=== PATIENT | male | born 1945 | race Caucasian/White ===

== ENCOUNTER → 2017-09-17 | Day surgery (SDC) | payer OTHER ==
[~2017-09-17] MED LIST: FENTANYL CITRATE INJ/PF 100 MCG/2 ML AMPUL ONE; LIDOCAINE 1% INJ-PF (10 MG/ML) 30 ML SDV ONE; MIDAZOLAM 2 MG/2 ML INJ ONE
[2017-09-17 09:20] VITALS: BP 138/86
[2017-09-17 10:05] LABS: HEMATOCRIT 45.8 % (37.9-51.0); HEMOGLOBIN 15.9 g/dL (13.5-17.0); INTERNATIONAL RATION (INR) 1.01; MEAN CORPUSCULAR HEMOGLOBIN 32.9 pg (27.0-33.4); MEAN CORPUSCULAR HGB CONC 34.6 g/dL (32.0-36.0); MEAN CORPUSCULAR VOLUME 95 fl (80-97); PLATELET COUNT 176 10^3/uL (150-450); PROTHROMBIN TIME 13.9 SEC (11.4-15.4); RED BLOOD COUNT 4.81 10^6/uL (4.35-5.55); WHITE BLOOD COUNT 7.2 10^3/uL (4.0-10.5)
[2017-09-17 10:06] LABS: PARTIAL THROMBOPLASTIN TIME 30.4 SEC (23.5-35.8)
[2017-09-17 10:23] LABS: BLOOD UREA NITROGEN 12 mg/dL (7-20)
--- NOTE | 2017-09-17 12:42 | RADIOLOGY REPORT (SQ) ---
EXAM DESCRIPTION: CT CHEST WITHOUT COMPLETED DATE/TIME: 09/17/2017 11:30 am REASON FOR STUDY: NONSPECIFIC ABNORMAL FINDING OF LUNG FIELD R91.8 OTHER NONSPECIFIC ABNORMAL FINDI NG OF LUNG FIELD COMPARISON: Outside CT chest TECHNIQUE: CT scan performed of the chest without intravenous contrast. Images reviewed with lung, soft tissue and bone windows. Reconstructed coronal and sagittal MPR images reviewed. All images st ored on PACS. All CT scanners at this facility use dose modulation, iterative reconstruction, and/or weight based d osing when appropriate to reduce radiation dose to as low as reasonably achievable (ALARA). [facility]: Dose Right [facility]: CareDose [facility]: Dose Right [facility]: Teradose 4D [facility]: MakeLeaps RADIATION DOSE: CT Rad equipment meets quality standard of care and radiation dose reduction techniq ues were employed. CTDIvol: 16.7 - 20.2 mGy. DLP: 873 mGy-cm. mGy. LIMITATIONS: No technical limitations. FINDINGS: Patient was referred for biopsy of a left lower lobe pulmonary nodule almost 2 cm in size. Patient was scanned in the prone position and right decubitus orientations. We were unable to create a pathway for percutaneous biopsy between the left lower ribs. No biopsy was performed today. IMPRESSION: Left lower lobe lung biopsy canceled today. Lesion is deep to the posterior left lower ribs, unable to find a clear percutaneous approach for biopsy. Consider PET-CT for followup. TECHNICAL DOCUMENTATION: JOB ID: [id number] Quality ID # [id number]: Final reports with documentation of one or more dose reduction techniques (e.g., Au tomated exposure control, adjustment of the mA and/or kV according to patient size, use of iterative reconstruction technique) 2010 [employer]- All Rights Reserved Reading location - IP/workstation name: [email or web address]
== END ==
LOC: RAD 09:00
PROVIDERS: ATTEND Clinical Nurse Specialist Adult Health
DX: R91.8 Other nonspecific abnormal finding of lung field (principal); Z53.9 Procedure and treatment not carried out, unspecified reason
CPT/HCPCS: 36415; 71250; 82565; 84520; 85027; 85610; 85730; J2250; J3010; J3490

== ENCOUNTER → 2017-09-23 | Outpatient (CLI) | payer OTHER ==
--- NOTE | 2017-09-24 09:26 | RADIOLOGY REPORT (SQ) ---
EXAM DESCRIPTION: PET CT SKULL/THIGH COMPLETED DATE/TIME: 09/23/2017 8:46 pm REASON FOR STUDY: SOLITARY PULMONARY NODULE R91.1 SOLITARY PULMONARY NODULE COMPARISON: None. RADIONUCLIDE AND DOSE: 11.3 mCi F18 FDG The route of agent administration: Intravenous FASTING BLOOD SUGAR: 90 mg/dl CONTRAST TYPE AND DOSE: No CT contrast given. TECHNIQUE: Blood glucose level was verified. Above dose of FDG was injected intravenously. 2-D seg mented attenuation correction images were obtained from the base of the skull to the midthighs. Nonc ontrast CT images were obtained for attenuation correction and fusion with emission images. CT image s were performed without oral or intravenous contrast and are not sensitive for parenchymal lesions. A series of overlapping emission PET images were obtained. Images reviewed and manipulated at [facility] [email or web address] work station by the radiologist. Images stored on PACS. LIMITATIONS: None. FINDINGS: HEAD AND NECK: No areas of abnormal metabolic activity in the soft tissues of the head and neck. CHEST: Hypermetabolic left lower lobe nodule 5.5 to 7.4 SUV. Hypermetabolic level 10 left hilar node 4.4 to 5.5 SUV and roughly 2.4 x 2.8 cm. Hypermetabolic level 4R node 2.8 to 3.3 SUV measuring abou t 1 cm. ABDOMEN AND PELVIS: No areas of abnormal metabolic activity in the abdomen or pelvis. Expected physi ologic activity is present in the genitourinary system and bowel. PROXIMAL LOWER EXTREMITIES: No areas of abnormal metabolic activity in the soft tissues of the lower extremities. BONES: No abnormal metabolic activity in the visualized skeleton. ADDITIONAL CT FINDINGS: No additional significant findings on the noncontrast CT images. OTHER: No other significant findings. IMPRESSION: 1. Hypermetabolic left lower lobe nodule. No safe window could be obtained for CT-guided biopsy. Re commend thoracic surgical consultation. 2. Hypermetabolic level 4 and level 10 nodes suspicious for metastasis. TECHNICAL DOCUMENTATION: JOB ID: [id number] [employer] All Rights Reserved Reading location - IP/workstation name: [email or web address]
== END ==
LOC: RAD 17:18
PROVIDERS: ATTEND Clinical Nurse Specialist Adult Health
DX: R91.1 Solitary pulmonary nodule (principal)
CPT/HCPCS: 78815; A9552

== ENCOUNTER → 2018-03-17 | Outpatient (CLI) | payer OTHER ==
--- NOTE | 2018-03-18 10:57 | RADIOLOGY REPORT (SQ) ---
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 TECHNIQUE: Blood glucose level was verified. Above dose of FDG was injected intravenously. 2-D seg mented attenuation correction images were obtained from the base of the skull to the midthighs. Nonc ontrast CT images were obtained for attenuation correction and fusion with emission images. CT image s were performed without oral or intravenous contrast and are not sensitive for parenchymal lesions. A series of overlapping emission PET images were obtained. Images reviewed and manipulated at [facility] work station by the radiologist. Images stored on PACS. LIMITATIONS: None. FINDINGS: HEAD AND NECK: Bilateral hypermetabolic supraclavicular lymph nodes are present. On the r ight side, a 2.2 x 1 cm lymph node is present on axial image 64 with SUV 3.8. On the left side, a 1.8 x 1 cm supraclavicular lymph node is present on axial image 67 with SUV of 3. 7. CHEST: In the left lower lobe, the malignant mass is now 5 x 4.5 cm on axial image 108 with SUV of 10 .5. There is bibasilar airspace disease, atelectasis versus pneumonia. More confluent nodule of dense ai rspace disease is present in the superior segment right lower lobe measuring 2.2 x 1.2 cm in size wit h SUV 5. This is best shown on axial image 110. Extensive hypermetabolic mediastinal adenopathy is present, increased from T12 15. Index nodules are as follows: Right paratracheal axial image 75, 1.8 x 1.5 cm with SUV 4.1. Pretracheal 2.3 x 2 cm lymph node axial image 86, SUV 5 point Precarinal/AP window mass of adenopathy, 5.3 x 2.3 cm on axial image 98 with SUV 5.6 Ill-defined 3 x 2 cm right hilar mass of adenopathy, SUV 5.8 Ill-defined 3 x 2 cm left hilar conglomerate adenopathy with SUV 5.1. ABDOMEN AND PELVIS: Multiple hypermetabolic lesions are present throughout the liver worrisome for me tastatic disease. The largest of these is 2 cm diameter posterior right lobe liver, better seen on P ET images. This has SUV of 5.5. There is a 1 cm left adrenal metastatic nodule with SUV 4.3. PROXIMAL LOWER EXTREMITIES: No areas of abnormal metabolic activity in the soft tissues of the lower extremities. 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 Left scapula and humerus lesions 3.3 SUV. Multiple rib and sternal lesions, 3.3 to 4 S UV. Left sacrum 5.3 at SUV. Left acetabular roof 8.[address] FINDINGS: Obstructive lung disease, calcified coronary arteries OTHER: Liver background activity 2.2 SUV. Blood pool background activity 1.5 SUV IMPRESSION: Enlargement of the primary left lower lobe mass, with mediastinal adenopathy and diffuse widespread soft tissue and bony metastatic lesions TECHNICAL DOCUMENTATION: JOB ID: [id number] [employer]- All Rights Reserved Reading location - IP/workstation name: [email or web address]
== END ==
LOC: RAD 19:05
PROVIDERS: ATTEND Clinical Nurse Specialist Adult Health
DX: C34.92 Malignant neoplasm of unspecified part of left bronchus or lung (principal)
CPT/HCPCS: 78815; A9552